=== PATIENT | female | born 1970 | race Caucasian/White ===

== ENCOUNTER 2016-04-27 19:37 | Emergency (ER) | payer BC, OTHER ==
[2016-04-27] MEDS ORDERED: METOCLOPRAMIDE 5 MG/ML 2 ML VIAL IVP STA (20:10)
[2016-04-27] MEDS ORDERED: SODIUM CHLORIDE 0.9% 1,000 ML IV STA (20:10)
[2016-04-27] MEDS ORDERED: diphenhydrAMINE 50 MG/ML 1 ML VIAL IVP STA (20:10)
--- NOTE | 2016-04-27 20:16 | ED ---
Headache HPI - General Chief Complaint: Headache Stated Complaint: migraine Time Seen by Provider: 04/27/16 20:05 Source: RN notes reviewed Mode of arrival: ambulatory Limitations: no limitations - History of Present Illness Initial Comments: 45-year-old female presents to the emergency department with a chief complaint of headache. Patient states long history of migraines. Patient states this is much like her normal migraine. Patient states she does have light sensitivity sensitivity to sound as well as nausea with this. Patient states she tried her home medication with no improvement to her pain. Patient states that she just states she cannot tolerate anymore so she is hoping we can get rid of her headache. Patient states there is nothing different about this headache. Patient states there is no falls traumas or injuries. Patient denies any changes in vision.Patient denies any recent fever, chills, shortness of breath, chest pain, back pain, abdominal pain, vomiting, numbness or tingling, dysuria or hematuria, constipation or diarrhea, or visual changes, or any other current symptoms. - Related Data Home Medications Medication Instructions Recorded Confirmed HYDROcodone/APAP 7.5-325MG [[place] 1 tab PO TID PRN 02/24/15 04/27/16 7.5-325] Vilazodone Hydrochloride [Viibryd] 40 mg PO DAILY 02/24/15 04/27/16 Cholecalciferol [Vitamin D3] 1,000 unit PO DAILY 04/27/16 04/27/16 Cyanocobalamin [Vitamin B-12] 500 mcg PO DAILY 04/27/16 04/27/16 [place]-3 Fatty Acids/Fish Oil [Fish 1,000 mg PO DAILY 04/27/16 04/27/16 Oil 1,000 mg Softgel] Vitamin E 1,000 unit PO DAILY 04/27/16 04/27/16 Allergies Allergy/AdvReac Type Severity Reaction Status Date / Time No Known Allergies Allergy Verified 04/27/16 20:24 Review of Systems ROS Statement: Those systems with pertinent positive or pertinent negative responses have been documented in the HPI. ROS Other: All systems not noted in ROS Statement are negative. Past Medical History Past Medical History: Fibromyalgia, Hypertension Additional Past Medical History / Comment(s): migraines History of Any Multi-Drug Resistant Organisms: None Reported Past Surgical History: No Surgical Hx Reported Past Psychological History: Anxiety, Depression Smoking Status: Never smoker Past Alcohol Use History: None Reported Past Drug Use History: None Reported General Exam - General Exam Comments Initial Comments: General: The patient is awake and alert, in no distress, and does not appear acutely ill. Eye: Pupils are equal, round and reactive to light, extra-ocular movements are intact; there is normal conjunctiva bilaterally. No signs of icterus. Ears, nose, mouth and throat: There are moist mucous membranes and no oral lesions. Neck: The neck is supple, there is no tenderness. Cardiovascular: There is a regular rate and rhythm. No murmur, rub or gallop is appreciated. Respiratory: Lungs are clear to auscultation, respirations are non-labored, breath sounds are equal. No wheezes, stridor, rales, or rhonchi. Gastrointestinal: Soft, non-distended, non-tender abdomen without masses or organomegaly noted. There is no rebound or guarding present. No CVA tenderness. Bowel sounds are unremarkable. Back: There is no tenderness to palpation in the midline. There is no obvious deformity. No rashes noted. Musculoskeletal: Normal ROM, no tenderness, There is no pedal edema. There is no calf tenderness or swelling. Sensation intact. Pulses equal bilaterally 2+. Neurological: CN II-XII intact, There are no obvious motor or sensory deficits. Coordination appears grossly intact. Speech is normal. Skin: Skin is warm and dry and no rashes or lesions are noted. Psychiatric: Cooperative, appropriate mood & affect, normal judgment. Limitations: no limitations Course Vital Signs 04/27/16 04/27/16 19:49 20:19 Temperature 97.6 F Pulse Rate 127 H Respiratory 26 H Rate Blood Pressure 212/118 154/100 O2 Sat by Pulse 96 Oximetry Medical Decision Making - Medical Decision Making 45-year-old female presents to the emergency Department chief complaint of headache. At this time patient states her headache is much like her typical headaches and has had improvement with the medication. Patient states she is ready to go home. This time patient will be discharged. Discussed. Follow-up with outpatient family's questions. Patient states she understood she is negative and plan. Patient will be discharged. Patient is a found to have an elevated blood pressure on this ER visit. At this time patient is informed to follow-up with his family care doctor for continued monitoring. Disposition Clinical Impression: Headache Disposition: HOME SELF-CARE Condition: Stable Instructions: Acute Headache (ED) Additional Instructions: Please use medication as discussed. Please follow up with family doctor if symptoms have not improved over the next two days. Please return to the emergency room if your symptoms increase or worsen or for any other concerns. Referrals: Liz Jaffe MD [Primary Care Provider] - 1-2 days Time of Disposition: 20:52
[2016-04-27 21:01] VITALS: BP 152/93; PULSE 80; RESP 16; TEMP 97.5
== END 2016-04-27 21:01 | disposition home or self-care (01) ==
LOC: EC 19:37
DX: R51 Headache (principal); I10 Essential (primary) hypertension; F32.9 Major depressive disorder, single episode, unspecified
CPT/HCPCS: 99283; 96374; 96375; 96361; J1200; J2765

== ENCOUNTER 2016-05-04 13:55 | Emergency (ER) | payer OTHER ==
[2016-05-04] MEDS ORDERED: MORPHINE SULFATE 4 MG/ML SYRINGE IV STA (15:35)
[2016-05-04] MEDS ORDERED: SODIUM CHLORIDE 0.9% 1,000 ML IV STA (15:35)
[2016-05-04] MEDS ORDERED: diphenhydrAMINE 50 MG/ML 1 ML VIAL IVP STA (15:36)
[2016-05-04] MEDS ORDERED: ONDANSETRON 4 MG/2 ML VIAL IVP STA (15:36)
[2016-05-04] MEDS ORDERED: KETOROLAC 30 MG/ML 1 ML VIAL IVP STA (15:36)
--- NOTE | 2016-05-04 15:37 | ED ---
General Adult HPI - General Chief complaint: Headache Stated complaint: migraine & high blood pressure-sent by Time Seen by Provider: 05/04/16 15:28 Source: patient, RN notes reviewed, old records reviewed Mode of arrival: ambulatory Limitations: no limitations - History of Present Illness Initial comments: This is a 45-year-old female the ER for evaluation of headache and migraine is type headache. Patient has history of migraines over the family is been lasting for about a week she was seen in the ER within first a week ago. Patient also coming here today for evaluation from family doctor regarding elevated blood pressure. Patient currently not taking any blood pressure medications. Patient was not prescribed any blood pressure medications as her family doctor wanted to have her migraine resolved prior. Patient had no recent trauma, no fevers. No nausea vomiting. No modifying factors for her headache and will - Related Data Home Medications Medication Instructions Recorded Confirmed HYDROcodone/APAP 7.5-325MG [[place] 1 tab PO TID PRN 02/24/15 05/04/16 7.5-325] Vilazodone Hydrochloride [Viibryd] 40 mg PO DAILY 02/24/15 05/04/16 Cholecalciferol [Vitamin D3] 1,000 unit PO DAILY 04/27/16 05/04/16 Cyanocobalamin [Vitamin B-12] 500 mcg PO DAILY 04/27/16 05/04/16 [place]-3 Fatty Acids/Fish Oil [Fish 1,000 mg PO DAILY 04/27/16 05/04/16 Oil 1,000 mg Softgel] Vitamin E 1,000 unit PO DAILY 04/27/16 05/04/16 Allergies Allergy/AdvReac Type Severity Reaction Status Date / Time No Known Allergies Allergy Verified 05/04/16 15:19 Review of Systems ROS Statement: Those systems with pertinent positive or pertinent negative responses have been documented in the HPI. ROS Other: All systems not noted in ROS Statement are negative. Past Medical History Past Medical History: Fibromyalgia, Hypertension Additional Past Medical History / Comment(s): migraines History of Any Multi-Drug Resistant Organisms: None Reported Past Surgical History: No Surgical Hx Reported Past Psychological History: Anxiety, Depression Smoking Status: Never smoker Past Alcohol Use History: None Reported Past Drug Use History: None Reported General Exam Limitations: no limitations General appearance: alert, in no apparent distress Head exam: Present: atraumatic, normocephalic, normal inspection Eye exam: Present: normal appearance, PERRL, EOMI. Absent: scleral icterus, conjunctival injection, periorbital swelling ENT exam: Present: normal exam, mucous membranes moist Neck exam: Present: normal inspection. Absent: tenderness, meningismus, lymphadenopathy Respiratory exam: Present: normal lung sounds bilaterally. Absent: respiratory distress, wheezes, rales, rhonchi, stridor Cardiovascular Exam: Present: regular rate, normal rhythm, normal heart sounds. Absent: systolic murmur, diastolic murmur, rubs, gallop, clicks GI/Abdominal exam: Present: soft, normal bowel sounds. Absent: distended, tenderness, guarding, rebound, rigid Extremities exam: Present: normal inspection, full ROM, normal capillary refill. Absent: tenderness, pedal edema, joint swelling, calf tenderness Back exam: Present: normal inspection Neurological exam: Present: alert, oriented X3, CN II-XII intact Psychiatric exam: Present: normal affect, normal mood Skin exam: Present: warm, dry, intact, normal color. Absent: rash Course Vital Signs 05/04/16 14:09 Temperature 98.2 F Pulse Rate 97 Respiratory 20 Rate Blood Pressure 196/91 O2 Sat by Pulse 97 Oximetry - Reevaluation(s) Reevaluation #1: 05/04/16 16:39 Headache is now resolved and her pressure much improved EKG Findings - EKG Comments: EKG Findings:: EKG shows normal sinus rhythm rate 94, LA 142, QRS 80, QTC 462 Medical Decision Making - Medical Decision Making 45-year-old year for evaluation of headache, pain withdrawal headache, migraine headache, headache is resolved at this time, CT negative patient can be discharged home patient will follow up with primary care for further blood pressure management - Lab Data Result diagrams: 05/04/16 15:50 05/04/16 15:50 Lab Results 05/04/16 05/04/16 Range/Units 15:50 15:50 WBC 10.8 H (3.8-10.6) k/uL RBC 5.23 (3.80-5.40) m/uL Hgb 15.3 (11.4-16.0) gm/dL Hct 46.4 H (34.0-46.0) % MCV 88.7 (80.0-100.0) fL MCH 29.3 (25.0-35.0) pg MCHC 33.0 (31.0-37.0) g/dL RDW 13.5 (11.5-15.5) % Plt Count 419 (150-450) k/uL Neutrophils % 73 % Lymphocytes % 19 % Monocytes % 5 % Eosinophils % 0 % Basophils % 1 % Neutrophils # 7.9 H (1.3-7.7) k/uL Lymphocytes # 2.1 (1.0-4.8) k/uL Monocytes # 0.5 (0-1.0) k/uL Eosinophils # 0.0 (0-0.7) k/uL Basophils # 0.1 (0-0.2) k/uL Sodium 142 (137-145) mmol/L Potassium 4.3 (3.5-5.1) mmol/L Chloride 98 (98-107) mmol/L Carbon Dioxide 26 (22-30) mmol/L Anion Gap 18 mmol/L BUN 11 (7-17) mg/dL Creatinine 0.70 (0.52-1.04) mg/dL Est GFR (MDRD) Af Amer >60 (>60 ml/min/1.73 sqM) Est GFR (MDRD) Non-Af >60 (>60 ml/min/1.73 sqM) Glucose 165 H (74-99) mg/dL Calcium 10.5 H (8.4-10.2) mg/dL Phosphorus 4.2 (2.5-4.5) mg/dL Magnesium 1.9 (1.6-2.3) mg/dL Total Bilirubin 0.6 (0.2-1.3) mg/dL AST 118 H (14-36) U/L ALT 107 H (9-52) U/L Alkaline Phosphatase 95 (38-126) U/L Total Protein 8.6 H (6.3-8.2) g/dL Albumin 4.9 (3.5-5.0) g/dL - Radiology Data Radiology results: report reviewed (CT brain negative for acute disease), image reviewed Disposition Clinical Impression: Headache, Hypertension Disposition: HOME SELF-CARE Condition: Good Instructions: Acute Headache (ED), Hypertension (ED) Referrals: Liz Jaffe MD [Primary Care Provider] - 1-2 days
[2016-05-04 16:03] LABS: Basophils # (A) 0.1 k/uL (0-0.2); Basophils % (A) 1 %; CH 30.3; CHCM 34.3; Eosinophils % (A) 0 %; HCT 46.4 % (34.0-46.0); HDW 2.77; HGB 15.3 gm/dL (11.4-16.0); Luc # (Auto) 0.14; Luc % (Auto) 1; Lymphocytes # (A) 2.1 k/uL (1.0-4.8); Lymphocytes % (A) 19 %; MCH 29.3 pg (25.0-35.0); MCV 88.7 fL (80.0-100.0); Mean Platelet Volume 7.4; Monocytes # (A) 0.5 k/uL (0-1.0); Monocytes % (A) 5 %; Neutrophils # (A) 7.9 k/uL (1.3-7.7); Neutrophils % (A) 73 %; RBC 5.23 m/uL (3.80-5.40); RDW 13.5 % (11.5-15.5); WBC 10.8 k/uL (3.8-10.6); WBC (Perox) 10.75
[2016-05-04 16:18] LABS: ALT 107 U/L (9-52); AST 118 U/L (14-36); Alkaline Phosphatase 95 U/L (38-126); Anion Gap 18 mmol/L; Blood Urea Nitrogen 11 mg/dL (7-17); Calcium 10.5 mg/dL (8.4-10.2); Carbon Dioxide 26 mmol/L (22-30); Chloride 98 mmol/L (98-107); Glucose 165 mg/dL (74-99); Magnesium 1.9 mg/dL (1.6-2.3); Non-African American GFR(MDRD) >60 (>60 ml/min/1.73 sqM); Phosphorous 4.2 mg/dL (2.5-4.5); Potassium 4.3 mmol/L (3.5-5.1); Sodium 142 mmol/L (137-145); Total Bilirubin 0.6 mg/dL (0.2-1.3); Total Protein 8.6 g/dL (6.3-8.2)
--- NOTE | 2016-05-04 17:55 | CT ---
EXAMINATION TYPE: CT brain wo con DATE OF EXAM: 05/04/2016 5:48 PM COMPARISON: 09/30/2010 HISTORY: PT states of migraines x2 weeks. CT DLP: 951.0 mGycm Automated exposure control for dose reduction was used. FINDINGS: The ventricles and sulci appear normal. There is no mass effect nor midline shift. There is no sign o f intracranial hemorrhage. The calvarium is intact. I see no bony destructive process. IMPRESSION: Negative CT scan of the brain. No change.
[2016-05-04 18:17] VITALS: BP 154/72; PULSE 90; RESP 18; TEMP 98
== END 2016-05-04 18:17 | disposition home or self-care (01) ==
LOC: EC 13:55
DX: R51 Headache (principal); I10 Essential (primary) hypertension; M79.7 Fibromyalgia; F41.8 Other specified anxiety disorders; Z86.69 Personal history of other diseases of the nervous system and sense organs; Z79.899 Other long term (current) drug therapy
CPT/HCPCS: 36415; 93005; 80053; 83735; 84100; 85025; 70450; 99284; 96365; 96366; 96375 ×4; J2270; J1200; J2405; J2930; J1885

== ENCOUNTER → 2016-05-07 | Outpatient (CLI) | payer OTHER ==
[2016-05-07 18:22] LABS: ALT 100 U/L (9-52); AST 127 U/L (14-36); Alkaline Phosphatase 105 U/L (38-126); Anion Gap 16 mmol/L; Blood Urea Nitrogen 14 mg/dL (7-17); Calcium 10.2 mg/dL (8.4-10.2); Carbon Dioxide 29 mmol/L (22-30); Chloride 95 mmol/L (98-107); Glucose 207 mg/dL (74-99); Iron 60 ug/dL (37-170); Non-African American GFR(MDRD) >60 (>60 ml/min/1.73 sqM); Sodium 140 mmol/L (137-145); Total Bilirubin 0.4 mg/dL (0.2-1.3)
[2016-05-07 18:24] LABS: Hemoglobin A1C 7.3 % (4.2-6.1)
[2016-05-07 18:31] LABS: % Iron Saturation 18.8 % (20-50); Total Iron Binding Capacity 320 ug/dL (265-497)
[2016-05-07 19:18] LABS: Hepatitis C Virus IgG Index 0.01
[2016-05-07 19:24] LABS: Hepatitis C Virus IgG Ab Negative (Negative)
[2016-05-07 20:56] LABS: Hepatitis B Surface Ag Index 0.05
[2016-05-07 21:01] LABS: Hepatitis B Core IgM Index 0.04
== END | disposition home or self-care (01) ==
LOC: MMGSC 11:04
PROVIDERS: ATTEND Family Medicine
DX: R94.5 Abnormal results of liver function studies (principal); R73.09 Other abnormal glucose
CPT/HCPCS: 36415; 80053; 80074; 82103; 82390; 82728; 83036; 83516; 83540; 83550

== ENCOUNTER → 2016-05-21 | Outpatient (CLI) | payer OTHER ==
--- NOTE | 2016-05-21 09:08 | US ---
EXAMINATION TYPE: US abdomen complete DATE OF EXAM: 05/21/2016 8:55 AM COMPARISON: NONE CLINICAL HISTORY: R94.5 ELEV LFTS. Pt states recent lab work showing elevated LFT's EXAM MEASUREMENTS: Liver Length: 23.6 cm Gallbladder Wall: 0.2 cm CBD: 0.4 cm Spleen: 9.5 cm Right Kidney: 11.5 x 6.4 x 6.3 cm Left Kidney: 12.1 x 5.8 x 5.9 cm TECHNOLOGIST IMPRESSION: Pancreas: wnl, tail obscured by bowel gas Liver: Enlarged, heterogeneous, difficult to penetrate Gallbladder: wnl Evidence for sonographic Olguin's sign: No CBD: wnl Spleen: wnl Right Kidney: wnl Left Kidney: wnl Upper IVC: wnl Abd Aorta: wnl Limited views of the pancreas are unremarkable. The liver is enlarged measuring 23.6 cm. It is echogenic and likely fatty infiltrated. The gallbladder is normal without evidence of cholelithiasis. The gallbladder wall measures 2.4 mm. T he distal common hepatic duct measures 4 mm. The spleen is normal in size. Both kidneys are normal. Visualized portions of the aorta and IVC are unremarkable. IMPRESSION: HEPATOMEGALY AND FATTY INFILTRATION OF THE LIVER.
== END | disposition home or self-care (01) ==
LOC: RADUSWWP 08:41
PROVIDERS: ATTEND Family Medicine
DX: R16.0 Hepatomegaly, not elsewhere classified (principal); K76.0 Fatty (change of) liver, not elsewhere classified
CPT/HCPCS: 76700

== ENCOUNTER → 2016-05-29 | Outpatient (CLI) | payer OTHER ==
--- NOTE | 2016-05-29 09:33 | MM ---
Reason for exam: additional evaluation requested from prior study. Last mammogram was performed 2 years and 9 months ago. History: Family history of breast cancer in mother at age 30 and breast cancer in maternal grandmother. Benign MG stereo VAD BX RT of the right breast, September 12, 2013. Physical Findings: Nurse Summary: 4cm nodule in the right breast at 9-12 O'Clock (nurse richa). MG 3D Diag Mammo W/Cad LONI Bilateral CC and MLO view(s) were taken. Prior study comparison: August 31, 2013, right breast MG diagnostic mammo RT w CAD. September 28, 2012, CAD bilateral diagnostic mammogram. The breast tissue is extremely dense which could obscure a lesion on mammography. Finding: There are typically benign calcifications. There is a chronic nodularity bilaterally. These results were verbally communicated with the patient and result sheet given to the patient on 05/29/16. ASSESSMENT: Incomplete: need additional imaging evaluation, BI-RAD 0 RECOMMENDATION: Ultrasound of the right breast. Manage patient on a clinical basis.
--- NOTE | 2016-05-29 09:42 | USB ---
Reason for exam: clinical finding. History: Family history of breast cancer in mother at age 30 and breast cancer in maternal grandmother. Benign MG stereo VAD BX RT of the right breast, September 12, 2013. Indicated problem(s): palpable abnormality in the right breast. US Breast RT Right breast ultrasound including all four quadrants, the retroareolar region and axilla demonstrates a 3.8 x 3.0 x 3.9cm oval, lobular, cystic lesion at palpable at 12 o'clock, a 0.8 x 0.5 x 0.6cm oval, cystic lesion at 2 o'clock, a 0.7 x 0.6 x 0.6cm oval, cystic lesion at 9 o'clock and a 1.2 x 0.8 x 1.3cm oval, cystic lesion at 10 o'clock. These results were verbally communicated with the patient and result sheet given to the patient on 05/29/16. ASSESSMENT: Benign, BI-RAD 2 RECOMMENDATION: Routine screening mammogram of both breasts in 1 year. Manage patient on a clinical basis.
== END | disposition home or self-care (01) ==
LOC: RADMAMWWP 07:34
PROVIDERS: ATTEND Family Medicine
DX: N63 Unspecified lump in breast (principal)
CPT/HCPCS: 76641; G0204; G0279

== ENCOUNTER → 2016-10-05 | Outpatient (CLI) | payer OTHER ==
[2016-10-05 20:51] LABS: ALT 50 U/L (9-52); AST 30 U/L (14-36); Alkaline Phosphatase 79 U/L (38-126); Anion Gap 14 mmol/L; Blood Urea Nitrogen 15 mg/dL (7-17); Calcium 10.3 mg/dL (8.4-10.2); Carbon Dioxide 26 mmol/L (22-30); Chloride 101 mmol/L (98-107); Cholesterol 217 mg/dL (<200); Glucose 136 mg/dL (74-99); HDL Cholesterol 45 mg/dL (40-60); Non-African American GFR(MDRD) >60 (>60 ml/min/1.73 sqM); Potassium 4.7 mmol/L (3.5-5.1); Sodium 141 mmol/L (137-145); Total Bilirubin 0.3 mg/dL (0.2-1.3); Total Protein 7.6 g/dL (6.3-8.2); Triglycerides 272 mg/dL (<150)
[2016-10-05 22:21] LABS: Hemoglobin A1C 6.3 % (4.2-6.1)
== END | disposition home or self-care (01) ==
LOC: MMGSC 12:19
PROVIDERS: ATTEND Family Medicine
DX: E11.9 Type 2 diabetes mellitus without complications (principal); E78.5 Hyperlipidemia, unspecified
CPT/HCPCS: 36415; 80053; 80061; 82043; 82570; 83036

== ENCOUNTER → 2016-12-23 | Outpatient (CLI) | payer OTHER ==
--- NOTE | 2016-12-23 13:18 | MR ---
EXAMINATION TYPE: MR tspine/cspine/lspine wo con DATE OF EXAM: 12/23/2016 COMPARISON: MRI cervical spine May 14, 2015. Lumbar spine x-ray April 04, 2015. HISTORY: back pain, tsp pain per order. Chronic back pain for 1.5 years per patient. TECHNIQUE: Multiplanar, multisequence imaging of the cervical, lumbar, and thoracic spine are perform ed without IV contrast. Cervical spine was performed in error. Patient will not be charged for cervic al spine MRI. C-SPINE: FINDINGS: Sagittal images of the cervical spine show the craniocervical junction to within main withi n normal limits. The cervical and upper thoracic spinal cord is normal in caliber and signal. There is redemonstration of straightening of cervical spine on sagittal images. There is scoliotic curvatur e that is dextroconvex near cervicothoracic junction and levoconvex in the visualized upper thoracic spine redemonstrated. The vertebral body heights remain normal. There is redemonstration of moderate disc space narrowing with mild to moderate anterior spurring and heterogeneous increased T1 and T2 si gnal consistent with Modic type II degenerative change centered at the C6-C7 disc space. There is add itional mild to moderate multilevel anterior spurring most prominent in the mid cervical spine redemo nstrated. No large posterior disc herniations are seen on sagittal images. Axial images show the C2-C3 and C3-C4 levels to remain within normal limits. Axial images at C4-C5 level redemonstrate broad-based posterior disc protrusion effacing anterior the harvinder sac, bilateral neural foramina are patent. No significant change from prior study is seen. Axial images at C5-C6 level felt to remain within normal limits. Axial images at C6-C7 level show broad-based posterior disc protrusion mildly effacing anterior theca l sac, bilateral neural foramina remain patent. No significant change from prior study is seen. Axial images at C7-T1 level are felt to remain within normal limits. IMPRESSION: Loss of normal cervical curvature with degenerative changes C4-C5 and C6-C7 level redemon strated. No significant change from prior. T-SPINE: FINDINGS: There is reactive dextroconvex scoliosis or curvature centered in the mid thoracic spine Sp inal cord shows normal caliber and signal as it courses the thoracic spine. Vertebral body heights a re satisfactory. Straightening of thoracic spine is seen on sagittal images. Disc space heights are f airly well-maintained. There are small posterior disc herniations mildly effacing anterior thecal sac at T6-T7, T7-T8, T8-T9 levels on sagittal image 8. Bone marrow signal intensity is preserved. There is mild multilevel anterior spurring noted. Review of the axial images shows no significant spinal canal stenosis or neural foraminal narrowing at any thoracic level. No additional significant disc herniation is seen. IMPRESSION: Scoliosis and straightening of thoracic spine with small posterior disc herniations in th e mid to lower thoracic spine noted. L-SPINE: FINDINGS: Sagittal images of the lumbar spine show vertebral body heights to appear satisfactory. The re is reactive levoconvex scoliosis centered in the mid lumbar spine. Multilevel disc desiccation is present. There is fairly moderate to severe disc space narrowing L5-S1 level otherwise disc space he ights are maintained. There is heterogeneous increased and decreased T1 and increased T2 signal at th is level consistent with Modic type I and type II degenerative change. Vacuum disc phenomenon is pres ent with mild anterior spurring. Posterior disc herniation L5-S1 level as seen on sagittal images. Th ere is additional mild multilevel anterior spurring in the lumbar spine. The conus medullaris is slig htly lower in position ending at superior L2 level. No suspicious signal is seen. No suspicious clump ing of lumbosacral nerve roots is noted. Axial images the T12-L1, L1-L2, L2-L3, L3-L4, and L4-L5 levels to appear within normal limits. Axial images at L5-S1 level show mild facet degenerative changes bilaterally. There is broad-based ce ntral disc protrusion but spinal canal is preserved. Bilateral neural foramina remain patent. A round 9 mm density anterior to L5-S1 disc space on axial image 3 just right of midline could reflec t exophytic diverticulum or prominent lymph node. IMPRESSION: Scoliotic curvature with degenerative change L5-S1 level seen as detailed above.
== END | disposition home or self-care (01) ==
LOC: RADMRIMAIN 08:42
PROVIDERS: ATTEND Family Medicine
DX: M47.817 Spondylosis without myelopathy or radiculopathy, lumbosacral region (principal); M43.8X7 Other specified deforming dorsopathies, lumbosacral region; M47.812 Spondylosis without myelopathy or radiculopathy, cervical region; M43.8X2 Other specified deforming dorsopathies, cervical region
CPT/HCPCS: 72146; 72148

== ENCOUNTER 2020-09-26 16:52 | Emergency (ER) | payer OTHER ==
[2020-09-26 16:57] VITALS: BP 120/78; PULSE 90; RESP 20; TEMP 98
[2020-09-26] MEDS ORDERED: HYDROcodone/APAP 5-325MG 1 EACH TAB PO STA (17:25)
[2020-09-26] MEDS ORDERED: DIPH,PERTUS(ACELL)TETVAC-LF 0.5 ML VIAL IM ONE (17:25)
[2020-09-26] MEDS ORDERED: LIDOCAINE/EPINEPHR/TETRACAINE 5 ML BOTTLE TOPICAL ONE (17:26)
--- NOTE | 2020-09-26 18:22 | CT ---
EXAMINATION TYPE: CT brain loni begum con DATE OF EXAM: 09/26/2020 COMPARISON: May 04, 2016 HISTORY: Fall, posterior head injury, patient on blood thinners, history of TBI. CT DLP: 1365.[address] of the brain was performed. The ventricles, basal cisterns and sulci overlying the cerebral convexities demonstrate enlargement. There is no evidence for intracranial hemorrhage or sulcal effacement. There is decreased attenuatio n about the periventricular white matter and deep white matter of both cerebral hemispheres, compatib le with chronic small vessel ischemia. No mass effects are seen. If symptoms persist consider MRI. Osseous calvarium is intact. IMPRESSION: 1. Age related atrophic and chronic small vessel ischemic change without acute intracranial process seen at this time. CT Cervical Spine: Unenhanced CT of the cervical spine was performed with bone and soft tissue window settings submitted . Coronal and sagittal reconstruction is obtained. There is normal alignment and prevertebral soft tissues. No evidence for acute cervical fracture . Scattered degenerative disc disease and spondylosis. Biapical scarring. IMPRESSION: 1. No evidence for acute fracture or subluxation of the cervical spine.
--- NOTE | 2020-09-26 18:39 | ED ---
Head Injury HPI - General Chief complaint: Head Injury Stated complaint: Fall/head lac/blood thinners Time Seen by Provider: 09/26/20 17:07 Source: patient Mode of arrival: ambulatory Limitations: no limitations - History of Present Illness Initial comments: 50-year-old female presents emergency department with a chief complaint of head injury and fall. States the incident occurred about half hour prior to arrival. She denies any loss of consciousness and a tetanus is not up-to-date. She does however report a laceration in the parietal region of her head with some bleeding which has since mostly resolved. She denies any gait instability, visual disturbances, one-sided weakness or paresthesias. She denies any nausea or vomiting. Denies any chest pain or shortness of breath denies any neck pain or other injuries to her body. - Related Data Home Medications Medication Instructions Recorded Confirmed HYDROcodone/APAP 7.5-325MG [[place] 1 tab PO TID PRN 02/24/15 05/04/16 7.5-325] Vilazodone HCl [Viibryd] 40 mg PO DAILY 02/24/15 05/04/16 Cholecalciferol [Vitamin D3] 1,000 unit PO DAILY 04/27/16 05/04/16 Cyanocobalamin [Vitamin B-12] 500 mcg PO DAILY 04/27/16 05/04/16 [place]-3 Fatty Acids/Fish Oil [Fish 1,000 mg PO DAILY 04/27/16 05/04/16 Oil 1,000 mg Softgel] Vitamin E (Dl,Tocopheryl Acet) 1,000 unit PO DAILY 04/27/16 05/04/16 [Vitamin E] Allergies/Adverse reactions: Allergies Allergy/AdvReac Type Severity Reaction Status Date / Time No Known Allergies Allergy Verified 09/26/20 16:54 Review of Systems ROS Statement: Those systems with pertinent positive or pertinent negative responses have been documented in the HPI. ROS Other: All systems not noted in ROS Statement are negative. Past Medical History Past Medical History: Fibromyalgia, Hypertension Additional Past Medical History / Comment(s): migraines, TBI x 2 History of Any Multi-Drug Resistant Organisms: None Reported Past Surgical History: Ablation, Section, Orthopedic Surgery Past Psychological History: Anxiety, Depression Smoking Status: Never smoker Past Alcohol Use History: None Reported Past Drug Use History: None Reported General Exam Limitations: no limitations General appearance: alert, in no apparent distress Head exam: Present: atraumatic, normocephalic. Absent: normal inspection (Laceration measuring approximately 1.5 cm on the parietal region of the scalp), other (Negative Sumner sign, raccoon eyes, hemotympanum.) Eye exam: Present: normal appearance, PERRL, EOMI Pupils: Present: normal accommodation ENT exam: Present: normal exam, normal oropharynx, mucous membranes moist Neck exam: Present: normal inspection, full ROM. Absent: tenderness, lymphadenopathy Respiratory exam: Present: normal lung sounds bilaterally. Absent: respiratory distress, wheezes, rales, rhonchi, stridor Cardiovascular Exam: Present: regular rate, normal rhythm, normal heart sounds. Absent: diastolic murmur GI/Abdominal exam: Present: soft. Absent: distended, tenderness, guarding, rebound Extremities exam: Present: normal inspection, full ROM, normal capillary refill. Absent: tenderness, pedal edema, joint swelling Back exam: Present: normal inspection, full ROM. Absent: tenderness Neurological exam: Present: alert, oriented X3, normal gait Psychiatric exam: Present: normal affect, normal mood Skin exam: Present: warm, dry, intact, normal color Course Vital Signs 09/26/20 16:54 Temperature 98 F Pulse Rate 90 Respiratory 20 Rate Blood Pressure 120/78 O2 Sat by Pulse 99 Oximetry Procedures - Laceration Laceration #1 Consent Obtained: verbal consent Indication: laceration Site: scalp Size (cm): 2 Description: linear, clean Depth: simple, single layer Sedation/Analgesia: none Anesthetic Used: lidocaine 1%, with epi Anesthesia Technique: local infiltration Amount (mls): 5 Pre-repair: irrigated extensively, deep structures intact Type of Sutures: other ([place]) Number of Sutures: 5 Patient Tolerated Procedure: well, no complications Medical Decision Making - Medical Decision Making 50-year-old female presents to emergency Department with a chief complaint of head injury. On physical examination, she has a 1.5 cm laceration on the parietal region of the scalp. No focal neural deficits. CT of the brain and C- spine is unremarkable. Laceration repair with 5 trey. Patient started procedure well. Strict return parameters were thoroughly discussed with patient is understanding and agreeable. Case discussed with Dr. Zavala. Disposition Clinical Impression: Hematoma of scalp, Head injury, Scalp laceration Disposition: HOME SELF-CARE Condition: Stable Instructions (If sedation given, give patient instructions): Staple Care (ED) Additional Instructions: Please return to the emergency room in 12 days to have sutures removed. Please watch for any signs of infection which may include increased pain, swelling, redness, fever or chills. Please return to emergency room for any signs of infection do occur. Please use clean soap and water over the area to prevent scabbing over your stitches. Please leave wound covered for the first 24-48 hours and then leave wound open to air. Please return to the emergency room for any other concerns.al Is patient prescribed a controlled substance at d/c from ED?: No Referrals: Jim Serrano MD [Primary Care Provider] - 1-2 days Time of Disposition: 18:39
== END 2020-09-26 19:07 | disposition home or self-care (01) ==
LOC: EC 16:52
DX: S01.01XA Laceration without foreign body of scalp, initial encounter (principal); Z23 Encounter for immunization; I10 Essential (primary) hypertension; F32.9 Major depressive disorder, single episode, unspecified; M79.7 Fibromyalgia; G43.909 Migraine, unspecified, not intractable, without status migrainosus; Z87.820 Personal history of traumatic brain injury; Z79.01 Long term (current) use of anticoagulants; W18.30XA Fall on same level, unspecified, initial encounter
CPT/HCPCS: 12001; 70450; 72125; 90471; 90715; 99284

== ENCOUNTER → 2021-12-03 | Outpatient (CLI) | payer OTHER ==
--- NOTE | 2021-12-10 14:46 | MM ---
Reason for Exam: Screening (asymptomatic). Last mammogram was performed 5 year(s) and 6 month(s) ago. Patient History: Menarche at age 11. First Full-Term at age 16. Postmenopausal. 09/12/2013, Benign Core Biopsy on the right side. Maternal grandmother had breast cancer. Mother had breast cancer, age 30. Risk Values: Gema 5 year model risk: 2.3%. NCI Lifetime model risk: 18.1%. Prior Study Comparison: 09/28/2012 Bilateral Diagnostic Mammogram, [facility]. 08/31/2013 Right Diagnostic Mammogram, [facility]. 05/29/2016 Bilateral Diagnostic Mammogram, [facility]. Tissue Density: The breast tissue is heterogeneously dense. This may lower the sensitivity of mammography. Findings: Analyzed By CAD. New grouped calcifications in the right breast middle depth, best appreciated on MLO view upper outer quadrant. Overall Assessment: Incomplete: need additional imaging evaluation, BI-RAD 0 Management: Diagnostic Mammogram of the right breast. A clinical breast exam by your physician is recommended on an annual basis and results should be correlated with mammographic findings. Electronically signed and approved by: Russell Alcaraz DO
== END | disposition home or self-care (01) ==
LOC: RADMAMWWP 08:16
PROVIDERS: ATTEND Family Medicine
DX: Z12.31 Encounter for screening mammogram for malignant neoplasm of breast (principal); Z78.0 Asymptomatic menopausal state; Z80.3 Family history of malignant neoplasm of breast
CPT/HCPCS: 77063; 77067

== ENCOUNTER → 2021-12-31 | Outpatient (CLI) | payer OTHER ==
--- NOTE | 2021-12-31 14:42 | MM ---
Reason for Exam: Additional evaluation requested from abnormal screening. Last screening mammogram was performed less than 1 month ago. Patient History: Menarche at age 11. First Full-Term at age 16. Postmenopausal. 09/12/2013, Benign Core Biopsy on the right side. Maternal grandmother had breast cancer. Mother had breast cancer, age 30. Risk Values: Gema 5 year model risk: 2.3%. NCI Lifetime model risk: 18.1%. Prior Study Comparison: 05/29/2016 Bilateral Diagnostic Mammogram, [facility]. 12/03/2021 Bilateral MG 3D screening mammo w/cad, [facility]. Tissue Density: The breast tissue is heterogeneously dense. This may lower the sensitivity of mammography. Findings: Analyzed By CAD. Finding seen on prior appears likely peripheral calcifications around the mass most consistent with oil cyst versus degenerating fibroid adenoma which is felt to be less likely. Additional benign-appearing calcifications are noted. No new suspicious masses consultations or distortions. Overall Assessment: Benign, BI-RAD 2 Management: Screening Mammogram of both breasts in 1 year. A clinical breast exam by your physician is recommended on an annual basis and results should be correlated with mammographic findings. This exam should not preclude additional follow-up of suspicious palpable abnormalities. Results were given to the patient verbally at the time of exam. Electronically signed and approved by: Russell Alcaraz DO
== END | disposition home or self-care (01) ==
LOC: RADMAMWWP 13:42
PROVIDERS: ATTEND Family Medicine
DX: R92.0 Mammographic microcalcification found on diagnostic imaging of breast (principal); R92.8 Other abnormal and inconclusive findings on diagnostic imaging of breast; Z78.0 Asymptomatic menopausal state; Z80.3 Family history of malignant neoplasm of breast
CPT/HCPCS: 77065; G0279; 77061

== ENCOUNTER → 2024-09-27 | Outpatient (CLI) | payer OTHER ==
--- NOTE | 2024-09-29 19:54 | MR ---
EXAMINATION TYPE: MR kjine/lspine wo/w con DATE OF EXAM: 09/27/2024 10:41 PM COMPARISON: MR T-spine/L-spine 12/23/2016, CT brain C-spine 09/26/2020, MR cervical spine 05/14/2015 CLINICAL INDICATION: Female, 54 years old with history of M54.2, M54.50, M41.9, Neck pain into left e lbow, low back pain into buttocks IV Contrast: 7.5 cc Gadobutrol TECHNIQUE: Multiplanar, multisequence images of the cervical spine is performed without and with IV contrast, ut ilizing 7.5 mL intravenous Gadobutrol FINDINGS: Alignment: The cervical vertebral bodies have preserved heights. Degenerative grade 1 anterolisthesis of C3 on C4. Slight reversal of the normal cervical lordosis. Bones: Type II Modic changes most prominent at C4-C5 and C6-C7. Multilevel anterior osteophytosis. Cord: The spinal cord is unremarkable with regards to their signal intensity and morphology. No abnor mal contrast enhancement. Discs: Multilevel disc desiccation is present. C2-C3: No significant disc pathology. The spinal canal is patent. No neural foraminal stenosis. C3-C4: Grade 1 anterolisthesis with uncovering of the disc. No disc herniation. No significant spinal canal or neuroforaminal stenosis. C4-C5: Broad-based disc bulge with effacement of the anterior thecal sac. Results in minimal spinal c anal stenosis. Uncovertebral joint hypertrophy. Mild left neural foraminal stenosis. The right neura l foramen is patent. C5-C6: Broad-based disc bulge with mild effacement of the anterior thecal sac. No significant spinal canal stenosis. Uncovertebral joint hypertrophy. Mild left neural foraminal stenosis. The right neur al foramen is patent. C6-C7: Broad-based disc bulge with mild effacement of the anterior thecal sac. No significant spinal canal stenosis. Uncovertebral joint hypertrophy. Mild bilateral neural foraminal stenosis. C7-T1: No significant disc pathology. The spinal canal is patent. No neural foraminal stenosis. Other: Retropharyngeal course of the bilateral common carotid arteries. IMPRESSION: 1. No evidence for disc herniation or significant spinal canal stenosis. 2. Mild to moderate multilevel disc degeneration with associated osteoarthritic changes. 3. Degenerative grade 1 anterolisthesis of C3 on C4. Slight reversal of the normal cervical lordosis. TECHNIQUE: Multiplanar, multisequence images of the lumbar spine is performed without and with IV contrast, util izing 7.5 mL intravenous Gadobutrol FINDINGS: Alignment: The lumbar vertebral bodies have preserved heights. Grade 1 anterolisthesis of L5 on S1 wi thout evidence of pars defects. Mild levocurvature of the lumbar spine with apex at L2-L3. Cord: The conus medullaris and the distal spinal cord appear unremarkable with regards to their signa l intensity and morphology. No abnormal contrast enhancement. Bones/Discs: Type II Modic changes involving the endplates around L5-S1 disc. Disc height loss at L5- S1. Multilevel disc desiccation. L1-L2: Small central disc protrusion. No significant effacement of the anterior thecal sac. No spinal canal stenosis. L2-L3: No significant disc pathology. Spinal canal is patent. The neural foramen are patent. L3-L4: No significant disc pathology. Spinal canal is patent. The neural foramen are patent. L4-L5: No significant disc pathology. Bilateral facet enlargement. Spinal canal is patent. The neural foramen are patent. L5-S1: Grade 1 anterolisthesis with uncovering of the disc. No disc herniation. Minimal broad-based d isc bulge with annular fissure demonstrated. No spinal canal stenosis. Bilateral facet enlargement. N o significant neural foraminal stenosis. Other findings: None. IMPRESSION: 1. No significant spinal canal stenosis. 2. Grade 1 anterolisthesis of L5 on S1 without pars defects. Moderate degenerative disc disease at t his level. Additional small L1-L2 disc protrusion. [facility], , 09/29/2024 7:51 PM
== END | disposition home or self-care (01) ==
LOC: RADMRIMAIN 21:15
PROVIDERS: ATTEND Family Medicine
DX: M50.30 Other cervical disc degeneration, unspecified cervical region (principal); M51.26 Other intervertebral disc displacement, lumbar region; M43.12 Spondylolisthesis, cervical region; M43.17 Spondylolisthesis, lumbosacral region
CPT/HCPCS: 72156; 72158; A9585